=== PATIENT | female | born 1980 ===

== ENCOUNTER 2023-09-01 09:41 | Outpatient (AMB) | payer OTHER, SELFPAY ==
--- NOTE | 2023-09-01 09:44 | AM.OFFWIN_ITS ---
Intake Vital Signs 09/01/23 09:45 Height 5 ft 9 in Weight 231 lb 8 oz BMI 34.2 BP 114/76 Blood Pressure Location Rt brachial Position Sitting Respiration 13 Pulse 82 Pulse Source Pulse Oximeter Temp 97.2 F Temp Source Temporal Artery Scan Pulse Oximetry (%) 95 Oxygen Delivery Method Room Air Intake Visit Reasons: Congestion,head/body ache Intake Note: Patient states that her partner tested positive for RSV last week and her symptoms have gotten worse. 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 Accompanied by: Self / Same As Patient Allergies house dust Allergy (Intermediate, Verified 09/01/23 10:03) Sneezing Seasonal Allergies Allergy (Intermediate, Verified 09/01/23 10:03) Sneezing Medication List - Last Reconciled 09/01/23 by Triston Robles CNP bupropion HCl 300 mg PO QAM fluoxetine 20 mg PO DAILY trazodone 50 mg PO BEDTIME Do you need a note to return to daycare/school/sports/work: No HPI HPI Comments History of Present Illness Details 43-year-old female presents with complai nts of headache, bilat ear pain, sore throat, nasal congestion, intermittent nonproductive cough, and body aches. She notes that her symptoms have been ongoing for past 6 days. She reports associated fatigue. She initially had fever and chills but not at this time. She has not had respiratory viral testing. She notes that her partner tested positive for RSV approximately 2 weeks ago and still recovering. [facility] Social History Patient Tobacco Use Status: Never used Tobacco Review of Systems Const Details: Const Denies chills, Reports fatigue, Denies fever(s), Reports headache(s) and Denies weakness ENT Reports as per HPI Resp Reports cough, Denies dyspnea, Denies wheezing and Denies other (shortness of breath) Cardio Denies chest pain, Denies lightheadedness, Denies dyspnea and Denies other (palpitations) Neuro Denies dizziness, Denies headache(s), Denies numbness, Denies tingling and Denies weakness Psych Denies anxiety, Denies depression, Denies memory?loss Endo REports fatigue Aller/Immun Denies wheezing Physical Exam Vital Signs: Last Vital Signs Temp 97.2 F 09/01/23 09:45 Pulse 82 09/01/23 09:45 Resp 13 09/01/23 09:45 BP 114/76 09/01/23 09:45 Pulse Ox 95 09/01/23 09:45 Oxygen Delivery Method Room Air 09/01/23 09:45 BMI result Body Mass Index 34.2 Const Other: Const General: well developed; No acute distress Nutritional Appearance: well nourished Orientation/consciousness: patient oriented x3 HEENT Head is normocephalic Bilateral ear canal and TM are normal Nasal turbinates and oropharynx are pink and moist Sinuses are nontender with palpation No auricular or cervical lymphadenopathy Eyes General: appearance normal, both eyes and all related structures Pupils: Equal, round and reactive pupils present EOM: EOMs intact bilaterally Resp Effort & Inspection: normal respiratory effort Auscultation: clear to auscultation bilaterally Cardio Rate: regular rate Rhythm: regular rhythm Heart sounds: S1 normal heart sound present, S2 normal heart sound present, no gallops, no murmurs and no rubs Bruits: no abdominal aortic bruits and no carotid bruits Neuro General: patient oriented x3 and gait normal, no focal neuro deficit Cranial nerves: Yes Equal, round and reactive pupils present Psych Affect: normal affect Assessment & Plan Assessment & Plan (1) Viral upper respiratory illness: Code(s): J06.9 - Acute upper respiratory infection, unspecified Plan: Likely viral illness though possibly allergies. No exam evidence of bacterial infection Viral illness There is no antibiotic medication for viruses.? They must run their course.? Most average 5-7 days but 7-10 days is not uncommon and up to 14 days is still possible.? A cough is often the last symptom to resolve and this can last for weeks in some cases. Rest Hydrate well -? Drink plenty of fluids.? Especially water. Tylenol or ibuprofen for muscle aches, headache, fever/discomfort Cannot rule out COVID-19/RSV/Flu infection Nasal swab acquired and will be sent to the lab Return for new or worsening symptoms Verbalized understanding and agreed with treatment plan. Orders: Orders SARS-CoV2/FLU/RSV Today J06.9 - Acute upper respiratory infection, unspecified Coding Level of Care Code New Pt Level 3 (96986) Diagnoses Viral upper respiratory illness J06.9
[2023-09-01 09:45] VITALS: BP 114/76; PULSE 82; RESP 13; TEMP 36.2; O2SAT 95; BMI 34.2
== END 2023-09-01 10:30 | disposition home or self-care (01) ==
PROVIDERS: Visit Provider Nurse Practitioner Family
DX: J06.9 Acute upper respiratory infection, unspecified (principal)
CPT/HCPCS: 99203

== ENCOUNTER 2023-09-01 10:17 | Outpatient (REF) | payer OTHER, SELFPAY ==
[2023-09-01 15:29] LABS: Influenza A PCR NEGATIVE (Negative); Influenza B PCR NEGATIVE (Negative); Resp Syncy Virus RNA Qual PCR POSITIVE (Negative); SARS COV2 PCR INHOUSE NEGATIVE (Negative)
== END 2023-09-01 10:18 | disposition home or self-care (01) ==
LOC: HO.LAB 10:17
PROVIDERS: Visit Provider Nurse Practitioner Family
DX: Z11.52 Encounter for screening for COVID-19 (principal); Z20.822 Contact with and (suspected) exposure to COVID-19; J06.9 Acute upper respiratory infection, unspecified
CPT/HCPCS: 0241U

== ENCOUNTER 2024-02-08 17:52 | Inpatient (IN) | payer OTHER, SELFPAY ==
--- NOTE | ~2024-02-08 | US_ITS ---
EXAMINATION: US PELVIS CLINICAL INFORMATION: Severe pelvic pain COMPARISON: None available. TECHNIQUE: Ultrasound of the pelvis is performed using both transabdominal and transvaginal transducers along with Doppler. Transvaginal imaging is performed due to inadequate visualization transabdominally. FINDINGS: Uterus: The uterus is anteverted, anteflexed and measures 8.0 x 3.9 x 4.7 cm. The double wall endometrial thickness is 0.3 cm. There is an IUD in correct position. The uterus is smooth in contour and has normal myometrial echogenicity. No visible fibroid. Adnexa: Both ovaries are visualized. There is normal color flow to the adnexa. There is no ovarian torsion. There is no pelvic ascites or fluid collection. Right ovary measures 2.7 x 1.6 x 1.7 cm. There is anechoic cyst measuring 1.6 x 1.5 x 1.4 cm. Left ovary measures 1.9 x 1.1 x 1.3 cm. Volume 1.4 mL. There is small amount of free fluid in the cul-de-sac. US/US pelvic and transvaginal IMPRESSION: 1. IUD in correct position. 2. Right ovarian cyst. 3. The left ovary is unremarkable. 4. Small amount of free fluid in the cul-de-sac.
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
[2024-02-08 18:42] VITALS: BP 128/81; PULSE 96; RESP 22; TEMP 36.9; O2SAT 98; BMI 31.7
[2024-02-08 18:49] VITALS: BP 128/81; PULSE 96; RESP 22; TEMP 36.9; O2SAT 98
[2024-02-08 19:05] LABS: UPreg QC Valid YES; Urine Pregnancy NEGATIVE (NEGATIVE)
[2024-02-08 19:14] LABS: Amphetamine Screen Urine Not Detected (Not Detect); Barbiturates, Urine Not Detected (Not Detect); Benzodiazepines Screen Urine Not Detected (Not Detect); Buprenorphine Scr Not Detected (Not Detect); Cannabinoid Screen Urine POSITIVE (Not Detect); Cocaine Screen Urine Not Detected (Not Detect); Fentanyl, urine Not Detected (Not Detect); Methadone Screen, Urine Not Detected (Not Detect); Opiate Screen Urine Not Detected (Not Detect); Oxycodone Screen Urine Not Detected (Not Detect); Phencyclidine Screen Urine Not Detected (Not Detect)
[2024-02-08 19:16] LABS: MANUAL DIFF FLAG NO
[2024-02-08 19:17] LABS: Basophils Percent Auto 0.4 % (0-2); Eosinophils Absolute Auto 0.1 X10*3/uL (0.0-0.4); Eosinophils Percent Auto 0.7 % (0-4); Hematocrit 40.1 % (37.0-47.0); Hemoglobin 13.7 g/dl (12.0-16.0); Imm Gran Abs Auto 0.01 X10*3/uL (0.00-0.03); Imm Gran Pct Auto 0.1 % (0.0-0.4); Lymphocytes Absolute Auto 1.7 X10*3/uL (1.2-4.9); Lymphocytes Percent Auto 18.7 % (20-40); Mean Corpuscular HGB Conc 34.2 g/dl (31.0-35.0); Mean Corpuscular Hemoglobin 31.8 pg (27.0-33.0); Mean Platelet Volume 8.9 fL (9.4-12.3); Monocytes Absolute Auto 0.7 X10*3/uL (0.1-1.2); Monocytes Percent Auto 7.6 % (2-11); Neutrophils Absolute Auto 6.7 x10*3/uL (2.0-8.3); Neutrophils Percent Auto 72.5 % (45-73); Platelet Count 258 X10*3/uL (160-400); Red Blood Count 4.31 X10*6/uL (4.20-5.50); Red Cell Distribution Width 12.6 % (11.0-16.0); White Blood Count 9.2 X10*3/uL (4.8-10.8)
[2024-02-08 19:32] LABS: Acetaminophen LAB < 3 mcg/mL (<30); Salicylate < 5.0 mg/dL (15-30)
[2024-02-08 19:34] LABS: Alanine Aminotransferase 12 U/L (0-31); Albumin Level 4.2 g/dL (3.5-5.0); Alkaline Phosphatase 77 U/L (39-117); Anion Gap 14 (12-20); Aspartate Amino Transferase 17 U/L (5-31); Bilirubin Direct 0.2 mg/dL (0.0-0.5); Bilirubin Total 0.4 mg/dL (0.0-1.0); Blood Urea Nitrogen 11 mg/dL (9-16); Calcium 9.1 mg/dL (8.4-10.2); Carbon Dioxide 25 mmol/L (22-29); Chloride 104 mmol/L (96-108); Creatinine Clr Calc Pharmacy 82.1; Estimated Glomerular Filt Rate 54; Ethanol < 10 mg/dL; Glucose Random 90 mg/dL (60-115); Potassium 3.6 mmol/L (3.3-5.1); Sodium 139 mmol/L (135-145); Total Protein 6.9 g/dL (6.5-8.0)
[2024-02-08 20:02] LABS: Appearance Urine Clear; Color Urine Yellow; Glucose Urine UA Negative (Negative); Leukocyte Esterase Urine Trace (Negative); Nitrite Urine Negative (Negative); PH 5.5 (5.0-9.0); Specific Gravity - Urine 1.025 (1.005-1.025); UMIC TRIGGER UA YES; Urine Blood Moderate (2+) (Negative); Urine Ketones 40 mg/dL (Negative); Urine Protein Trace mg/dL (Neg-Trace)
[2024-02-08 20:14] LABS: Bacteria Urine 4+ (None Seen); Hyaline Casts Urine 0-2 /LPF (0-2)
--- NOTE | 2024-02-09 04:45 | PC.NURSE ---
Patient slept through the night, no distress observed/reported, med rec completed/pending provider's approval, disposition per care team is section 12 inpatient bed search, no behavior and safety issues, safety check maintained on 15 minutes, VSS, will continue to monitor
[2024-02-09 06:27] VITALS: BP 137/78; PULSE 84; TEMP 36.4; O2SAT 99
--- NOTE | 2024-02-09 06:49 | PC.NURSE ---
Assumed care of patient at 0645, patient appears to be in no apparent distress, sleeping, respirations even and unlabored. Continue plan of care for inpatient bedsearch
[2024-02-09] MEDS: FLUoxetine HCl 20 MG CAPSULE PO (08:00)
[2024-02-09] MEDS: buPROPion HCl XL 300 MG TAB.ER.24H PO (08:00)
[2024-02-09] MEDS: Ibuprofen 800 MG TABLET PO (12:02)
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
[2024-02-09 13:52] VITALS: BMI 32.6
[2024-02-09] MEDS: Acetaminophen 325 MG TABLET 650 MG PO (15:35)
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
[2024-02-09] MEDS: LORazepam 2 MG/ML VIAL 1 MG IM (18:49)
[2024-02-09 20:15] VITALS: PULSE 79; RESP 16; TEMP 36.9; O2SAT 96
[2024-02-09] MEDS: hydrOXYzine HCL 25 MG TABLET PO (20:20)
[2024-02-09] MEDS: traZODone HCL 50 MG TABLET PO (20:20)
[2024-02-09] MEDS: QUEtiapine Fumarate 25 MG TABLET PO (20:20)
[2024-02-09 20:21] VITALS: BP 135/71
[2024-02-09] MEDS: Prazosin HCL 1 MG CAPSULE PO (20:21)
[2024-02-10 08:00] VITALS: BP 136/68; PULSE 76; RESP 18; TEMP 36.6; O2SAT 96
[2024-02-10] MEDS: buPROPion HCl XL 300 MG TAB.ER.24H PO (08:47)
[2024-02-10] MEDS: FLUoxetine HCl 20 MG CAPSULE PO (08:47)
[2024-02-10 08:48] LABS: Syphilis Screen Nonreactive (Nonreactive)
[2024-02-10] MEDS: Lidocaine 4 % Patch ADH..PATCH 1 PATCH TRANSDERMA (08:49)
--- NOTE | 2024-02-10 08:50 | HO.PSYCHPN ---
Subjective Subjective Date of Service: 02/10/24 Reason For Visit: crisis Subjective Notes: Conditional Voluntary Interim History: Reviewed with Dr. Mccormack. Keeping to self. Pt reports feeling exhausted today; pt stated, I feel like my anxiety has improved. I didn't have nightmares last night and slept well . Pt denies SI/HI/VH/AH. Pt seen by hospitalist for pelvic pain, please see note. Medication Compliance: Yes Side effects from medications: No Attending Groups: No Review of Systems Constitutional: Reports as per HPI Eyes: Reports as per HPI Reports as per HPI Cardiovascular: Reports as per HPI Respiratory: Reports as per HPI Gastrointestinal: Reports as per HPI Musculoskeletal: Reports as per HPI Skin/Breast: Reports as per HPI Reports as per HPI Psychiatric: Reports as per HPI Endocrine: Reports as per HPI Hematologic/Lymphatic: Reports as per HPI Allergic/Immunologic: Reports as per HPI Mental Status Exam Mental Status Exam Narrative: Pt is alert and oriented; behavior is cooperative and calm; dressed in casual attire; mood is described as depressed and anxious ; eye contact appropriate; Speech is normal rate, volume and not pressured; thought process is organized and goal directed; Thought content is on tx; otherwise pertinent to relevant topics and without any delusional content, paranoid ideations or grandiosity; denies SI/HI/VH/AH. Diagnostics Vital Signs (24Hr): Vital Signs - 24 hr 02/09/24 20:15 02/09/24 20:21 02/10/24 08:00 Temperature 98.4 F 97.8 F Pulse Rate 79 76 Respiratory Rate 16 18 Blood Pressure 135/71 136/68 Pulse Oximetry 96 96 Oxygen Delivery Method Room Air Room Air BMI result Body Mass Index 32.6 Labs 02/08/24 19:11 02/10/24 08:28 Labs: Laboratory Results - last 48 hr 02/08/24 02/08/24 02/09/24 18:47 19:11 18:03 WBC 9.2 RBC 4.31 Hgb 13.7 Hct 40.1 MCV 93.0 MCH 31.8 MCHC 34.2 RDW 12.6 Plt Count 258 MPV 8.9 L Immature Gran % (Auto) 0.1 Neut % (Auto) 72.5 Lymph % (Auto) 18.7 L [place] % (Auto) 7.6 Eos % (Auto) 0.7 Baso % (Auto) 0.4 Lymph # (Auto) 1.7 [place] # (Auto) 0.7 Eos # (Auto) 0.1 Baso # (Auto) 0.0 Abs Immat Gran (auto) 0.01 Absolute Neuts (auto) 6.7 Absolute Nucleated RBC 0.000 Nucleated RBC % (auto) 0.0 Sodium 139 Potassium 3.6 Chloride 104 Carbon Dioxide 25 Anion Gap 14 BUN 11 Creatinine 1.12 Estim Creat Clear Calc 82.1 Estimated GFR 54 Random Glucose 90 Calcium 9.1 Total Bilirubin 0.4 Direct Bilirubin 0.2 AST 17 ALT 12 Alkaline Phosphatase 77 Total Creatine Kinase 186 H Total Protein 6.9 Albumin 4.2 Urine Color Yellow Urine Appearance Clear Urine pH 5.5 Ur Specific [place] 1.025 Urine Protein Trace Urine Glucose (UA) Negative Urine Ketones 40 Urine Blood Moderate (2+) H Urine Nitrite Negative Ur Leukocyte Esterase Trace H Urine RBC 6-10 H Urine WBC 6-10 Ur Squamous Epith Cells 11-20 Urine Bacteria 4+ Hyaline Casts 0-2 Urine Test NEGATIVE Salicylates < 5.0 L Urine Opiates Screen Not Detected Ur Buprenorphine Scrn Not Detected Ur Oxycodone Screen Not Detected Urine Methadone Screen Not Detected Urine Fentanyl Screen Not Detected Acetaminophen < 3 Ur Barbiturates Screen Not Detected Ur Phencyclidine Scrn Not Detected Ur Amphetamines Screen Not Detected U Benzodiazepines Scrn Not Detected Urine Cocaine Screen Not Detected U Marijuana (THC) Screen POSITIVE H Ethyl Alcohol < 10 T.pallidum Ab (EIA) Nonreactive Imaging Radiology Impressions: ITS Impressions Pelvic/Transvag US 02/09/24 19:22 IMPRESSION: 1. IUD in correct position. 2. Right ovarian cyst. 3. The left ovary is unremarkable. 4. Small amount of free fluid in the cul-de-sac. Medications Medications Current Medications Acetaminophen (Acetaminophen 325 Mg Tablet) 650 mg PO Q6H PRN PRN Reason: Headache/Pain Mild Scale (1-3) Last Admin: 02/09/24 15:35 Dose: 650 mg Al Hydroxide/Mg Hydroxide (Magnesium Hydrox/Alum Hydrox 30 Ml Oral.Susp) 30 ml PO Q6H PRN PRN Reason: Heartburn/Nausea Bupropion HCl (Bupropion Hcl Xl 300 Mg Tab.Er.24h) 300 mg PO DAILY [facility] Last Admin: 02/09/24 08:00 Dose: 300 mg Fluoxetine HCl (Fluoxetine Hcl 20 Mg Capsule) 20 mg PO DAILY [facility] Last Admin: 02/09/24 08:00 Dose: 20 mg Hydroxyzine HCl (Hydroxyzine Hcl 25 Mg Tablet) 25 mg PO Q6H PRN PRN Reason: Anxiety Last Admin: 02/09/24 20:20 Dose: 25 mg Ibuprofen (Ibuprofen 600 Mg Tablet) 600 mg PO Q6H PRN PRN Reason: Pain, Moderate(Pain Scale 4-6) Ketorolac Tromethamine (Ketorolac Tromethamine 15 Mg/Ml Vial) 15 mg IM Q6H PRN PRN Reason: pelvic pain Lidocaine (Lidocaine 4 % Patch Adh..Patch) 1 patch TRANSDERMA DAILY [facility]; Protocol Magnesium Hydroxide (Milk Of Magnesia 30 Ml Oral.Susp) 30 ml PO DAILY PRN PRN Reason: Constipation Nicotine (Nicotine 21 Mg Patch.Td24) 21 mg TRANSDERMA DAILY [facility] Nicotine Polacrilex (Nicotine Polacrilex 2 Mg Gum) 4 mg BUCCAL Q2H PRN PRN Reason: Nicotine Cravings Prazosin HCl (Prazosin Hcl 1 Mg Capsule) 1 mg PO BEDTIME [facility]; Protocol Last Admin: 02/09/24 20:21 Dose: 1 mg Quetiapine Fumarate (Quetiapine Fumarate 25 Mg Tablet) 25 mg PO BID PRN PRN Reason: Anxiety Last Admin: 02/09/24 20:20 Dose: 25 mg Testosterone Cypionate (Testosterone Cypionate 200 Mg/1 Ml Vial) 100 mg SUBCUT Sa [facility] Trazodone HCl (Trazodone Hcl 50 Mg Tablet) 50 mg PO BEDTIME [facility] Last Admin: 02/09/24 20:20 Dose: 50 mg Allergies Allergies Allergy/AdvReac Type Severity Reaction Status Date / Time house dust Allergy Intermediate Sneezing Verified 02/08/24 18:47 Seasonal Allergies Allergy Intermediate Sneezing Verified 02/08/24 18:47 Assessment & Plan Assessment & Plan (1) MDD (major depressive disorder), recurrent episode: Status: Acute Code(s): F33.9 - Major depressive disorder, recurrent, unspecified (2) PTSD (post-traumatic stress disorder): Status: Acute Code(s): F43.10 - Post-traumatic stress disorder, unspecified (3) Pelvic pain: Status: Acute Code(s): R10.2 - Pelvic and perineal pain Assessment and Plan: 43 year old transgender male on testosterone therapy with history of endometriosis with history of multiple exploratory lap surgeries, hx ovarian cysts admitted to adult psychiatry with consult placed to hospitalist service for evaluation of severe left sided pelvic pain that started about 1 week ago. #Severe pelvic pain- etiology unclear at this time. Has been intermittent x several month. However, give recent IUD insertion, would recommend: -gonorrhea and chlamydia pcr. WOuld like full STD testing- syphilis and HIV testing ordered at patient request -BV panel (BV, yeast, trich) -UA with trace leukocytes, 2+ blood, 4+ bacteria. Hold on abx for now until further testing results as patient not symptomatic of UTI at this time -Transvaginal/pelvis US ordered. Administer 1mg ativan prior to test -IM ketorolac prn for pelvic pain. Continue dry heat Will continue following for results Plan Patient is a 43-year-old transgender female to male who goes by Flo, who self presented to [facility] due increase PTSD symptoms which included flashbacks secondary to finding out one of his friends is a registered sex offender. Plan: CV 15 minute safety checks Continue home medications Start: Prazosin 1mg PO bedtime Seroquel 25mg PO BID PRN encourage groups referral to outpatient therapist possible PHP referral? discharge planning 02/09: Keeping to self. Pt reports feeling exhausted today; pt stated, I feel like my anxiety has improved. I didn't have nightmares last night and slept well . Pt denies SI/HI/VH/AH. Pt seen by hospitalist for pelvic pain, please see note. Continue to encourage groups. Continue current tx plan. Patient educated on: diagnosis, medication risk/benefits and therapeutic strategies Reason for continued inpatient stay Substantial Risk for: med/psych decompensation Time Spent With Patient Time: Total time managing care of this patient today _20___ minutes.
[2024-02-10 08:52] LABS: Alanine Aminotransferase 11 U/L (0-31); Albumin Level 4.2 g/dL (3.5-5.0); Alkaline Phosphatase 76 U/L (39-117); Anion Gap 14 (12-20); Aspartate Amino Transferase 15 U/L (5-31); Bilirubin Total 0.5 mg/dL (0.0-1.0); Blood Urea Nitrogen 9 mg/dL (9-16); Calcium 9.6 mg/dL (8.4-10.2); Carbon Dioxide 29 mmol/L (22-29); Chloride 104 mmol/L (96-108); Cholesterol 150 mg/dL (<200); Creatinine Clr Calc Pharmacy 89.7; Estimated Glomerular Filt Rate 58; Glucose Fasting 90 mg/dL (60-99); HDL Cholesterol 48 mg/dL (>40); LDL Cholesterol Calculated 84 mg/dL (<100); Potassium 4.4 mmol/L (3.3-5.1); Sodium 143 mmol/L (135-145); Total Protein 7.1 g/dL (6.5-8.0); Triglycerides 94 mg/dL (<150)
[2024-02-10 08:54] LABS: HIV Num 1 1.08 S/CO (0.00-0.99)
[2024-02-10] MEDS: Ketorolac Tromethamine 15 MG/ML VIAL IM ×2 (11:43→20:33)
[2024-02-10 12:11] LABS: Bacterial Vaginosis PCR NEGATIVE (Negative); Candida Group PCR NOT DETECTED (Not Detect); Candida glab krusei PCR NOT DETECTED (Not Detect); Trichomonas vaginalis PCR NOT DETECTED (Not Detect)
[2024-02-10 12:58] LABS: HIV Num 2 0.05 S/CO
[2024-02-10 13:05] LABS: HIV AB/AG Nonreactive (Nonreactive); HIV Num 3 0.04 S/CO
[2024-02-10 20:30] VITALS: PULSE 85; RESP 16; TEMP 36.9; O2SAT 100
[2024-02-10 20:34] VITALS: BP 122/60
[2024-02-10] MEDS: Prazosin HCL 1 MG CAPSULE PO (20:34)
[2024-02-10] MEDS: hydrOXYzine HCL 25 MG TABLET PO (20:34)
[2024-02-10] MEDS: QUEtiapine Fumarate 25 MG TABLET PO (20:35)
[2024-02-10] MEDS: traZODone HCL 50 MG TABLET PO (20:35)
[2024-02-11] MEDS: Ketorolac Tromethamine 15 MG/ML VIAL IM ×2 (00:55→06:47)
[2024-02-11 03:18] LABS: CT PCR NOT DETECTED (Not Detect.); NG PCR NOT DETECTED (Not Detect.)
--- NOTE | 2024-02-11 06:51 | PC.NURSE ---
toradol IM-2 vial from patient specific bin, last dose pulled from [facility]. initial pain level 01/30, last administration 09/30.
[2024-02-11 07:53] VITALS: BP 135/69; PULSE 83; RESP 16; TEMP 36.7; O2SAT 98
--- NOTE | 2024-02-11 08:53 | HO.PSYCHPN ---
Subjective Subjective Date of Service: 02/11/24 Reason For Visit: crisis Subjective Notes: Conditional Voluntary Interim History: Reviewed with Dr. Mccormack. Keeping to self. Pt reports feeling anxious and depressed today; pt stated, I feel like every time in my life when I start feel better, something happens and it sets me back . Patient reports she is not feeling as anxious or jumpy . She is declining to attend groups at this time due to the unit being too noisy . Patient reports she is not interested in attending PHP, nor wants us to refer her to a therapist. She plans on contacting a trauma informed therapist on her own when discharged. Pt denies SI/HI/VH/AH. Medication Compliance: Yes Side effects from medications: No Attending Groups: No Review of Systems Constitutional: Reports as per HPI Eyes: Reports as per HPI Reports as per HPI Cardiovascular: Reports as per HPI Respiratory: Reports as per HPI Gastrointestinal: Reports as per HPI Musculoskeletal: Reports as per HPI Skin/Breast: Reports as per HPI Reports as per HPI Psychiatric: Reports as per HPI Endocrine: Reports as per HPI Hematologic/Lymphatic: Reports as per HPI Allergic/Immunologic: Reports as per HPI Mental Status Exam Mental Status Exam Narrative: Pt is alert and oriented; behavior is cooperative and calm; dressed in casual attire; mood is described as depressed and anxious ; eye contact appropriate; Speech is normal rate, volume and not pressured; thought process is organized and goal directed; Thought content is on tx; otherwise pertinent to relevant topics and without any delusional content, paranoid ideations or grandiosity; denies SI/HI/VH/AH. Diagnostics Vital Signs (24Hr): Vital Signs - 24 hr 02/10/24 20:30 02/10/24 20:34 02/11/24 07:53 Temperature 98.5 F 98.1 F Pulse Rate 85 83 Respiratory Rate 16 16 Blood Pressure 122/60 135/69 Pulse Oximetry 100 98 Oxygen Delivery Method Room Air Room Air BMI result Body Mass Index 32.6 Labs 02/08/24 19:11 02/10/24 08:28 Labs: Laboratory Results - last 48 hr 02/09/24 02/10/24 02/10/24 18:03 06:30 08:28 Sodium 143 Potassium 4.4 D Chloride 104 Carbon Dioxide 29 Anion Gap 14 BUN 9 Creatinine 1.04 Estim Creat Clear Calc 89.7 Estimated GFR 58 Fasting Glucose 90 Calcium 9.6 Total Bilirubin 0.5 AST 15 ALT 11 Alkaline Phosphatase 76 Total Protein 7.1 Albumin 4.2 Triglycerides 94 Cholesterol 150 LDL Cholesterol, Calc 84 HDL Cholesterol 48 T.pallidum Ab (EIA) Nonreactive Chlam trachomat DNA PCR HIV 1&2 Ab/P24 Ag 4thGn Nonreactive N.gonorrhoeae DNA (PCR) T. vaginalis (PCR) NOT DETECTED Bact Vaginosis (PCR) NEGATIVE C. krusei/glabrata (PCR) NOT DETECTED Janelle group (PCR) NOT DETECTED 02/10/24 20:00 Sodium Potassium Chloride Carbon Dioxide Anion Gap BUN Creatinine Estim Creat Clear Calc Estimated GFR Fasting Glucose Calcium Total Bilirubin AST ALT Alkaline Phosphatase Total Protein Albumin Triglycerides Cholesterol LDL Cholesterol, Calc HDL Cholesterol T.pallidum Ab (EIA) Chlam trachomat DNA PCR NOT DETECTED HIV 1&2 Ab/P24 Ag 4thGn N.gonorrhoeae DNA (PCR) NOT DETECTED T. vaginalis (PCR) Bact Vaginosis (PCR) C. krusei/glabrata (PCR) Janelle group (PCR) Imaging Radiology Impressions: ITS Impressions Pelvic/Transvag US 02/09/24 19:22 IMPRESSION: 1. IUD in correct position. 2. Right ovarian cyst. 3. The left ovary is unremarkable. 4. Small amount of free fluid in the cul-de-sac. Medications Medications Current Medications Acetaminophen (Acetaminophen 325 Mg Tablet) 650 mg PO Q6H PRN PRN Reason: Headache/Pain Mild Scale (1-3) Last Admin: 02/09/24 15:35 Dose: 650 mg Al Hydroxide/Mg Hydroxide (Magnesium Hydrox/Alum Hydrox 30 Ml Oral.Susp) 30 ml PO Q6H PRN PRN Reason: Heartburn/Nausea Bupropion HCl (Bupropion Hcl Xl 300 Mg Tab.Er.24h) 300 mg PO DAILY [facility] Last Admin: 02/10/24 08:47 Dose: 300 mg Fluoxetine HCl (Fluoxetine Hcl 20 Mg Capsule) 20 mg PO DAILY [facility] Last Admin: 02/10/24 08:47 Dose: 20 mg Hydroxyzine HCl (Hydroxyzine Hcl 25 Mg Tablet) 25 mg PO Q6H PRN PRN Reason: Anxiety Last Admin: 02/10/24 20:34 Dose: 25 mg Ibuprofen (Ibuprofen 600 Mg Tablet) 600 mg PO Q6H PRN PRN Reason: Pain, Moderate(Pain Scale 4-6) Lidocaine (Lidocaine 4 % Patch Adh..Patch) 1 patch TRANSDERMA DAILY [facility]; Protocol Last Admin: 02/10/24 08:49 Dose: 1 patch Magnesium Hydroxide (Milk Of Magnesia 30 Ml Oral.Susp) 30 ml PO DAILY PRN PRN Reason: Constipation Nicotine Polacrilex (Nicotine Polacrilex 2 Mg Gum) 4 mg BUCCAL Q2H PRN PRN Reason: Nicotine Cravings Prazosin HCl (Prazosin Hcl 1 Mg Capsule) 1 mg PO BEDTIME [facility]; Protocol Last Admin: 02/10/24 20:34 Dose: 1 mg Quetiapine Fumarate (Quetiapine Fumarate 25 Mg Tablet) 25 mg PO BID PRN PRN Reason: Anxiety Last Admin: 02/10/24 20:35 Dose: 25 mg Testosterone Cypionate (Testosterone Cypionate 200 Mg/1 Ml Vial) 100 mg SUBCUT Sa [facility] Trazodone HCl (Trazodone Hcl 50 Mg Tablet) 50 mg PO BEDTIME [facility] Last Admin: 02/10/24 20:35 Dose: 50 mg Allergies Allergies Allergy/AdvReac Type Severity Reaction Status Date / Time house dust Allergy Intermediate Sneezing Verified 02/08/24 18:47 Seasonal Allergies Allergy Intermediate Sneezing Verified 02/08/24 18:47 Assessment & Plan Assessment & Plan (1) MDD (major depressive disorder), recurrent episode: Status: Acute Code(s): F33.9 - Major depressive disorder, recurrent, unspecified (2) PTSD (post-traumatic stress disorder): Status: Acute Code(s): F43.10 - Post-traumatic stress disorder, unspecified Plan Patient is a 43-year-old transgender female to male who goes by Flo, who self [place] [facility] [place] increase PTSD symptoms which included flashbacks secondary to finding out one of his friends is a registered sex offender. Plan: CV 15 minute safety checks Continue home medications Start: Prazosin 1mg PO bedtime Seroquel 25mg PO BID PRN encourage groups referral to outpatient therapist possible PHP referral? discharge planning 02/09: Keeping to self. Pt reports feeling exhausted today; pt stated, I feel like my anxiety has improved. I didn't have nightmares last night and slept well . Pt denies SI/HI/VH/AH. Pt seen by hospitalist for pelvic pain, please see note. Continue to encourage groups. Continue current tx plan. 02/10: Keeping to self. Pt reports feeling anxious and depressed today; pt stated, I feel like every time in my life when I start feel better, something happens and it sets me back . Patient reports she is not feeling as anxious or jumpy . She is declining to attend groups at this time due to the unit being too noisy . Patient reports she is not interested in attending PHP, nor wants us to refer her to a therapist. She plans on contacting a trauma informed therapist on her own when discharged. Pt denies SI/HI/VH/AH. Patient educated on: diagnosis, medication risk/benefits and therapeutic strategies Informed Consent: understands Reason for continued inpatient stay Substantial Risk for: med/psych decompensation Time Spent With Patient Time: Total time managing care of this patient today _20___ minutes.
[2024-02-11] MEDS: FLUoxetine HCl 20 MG CAPSULE PO (08:55)
[2024-02-11] MEDS: buPROPion HCl XL 300 MG TAB.ER.24H PO (08:55)
[2024-02-11] MEDS: QUEtiapine Fumarate 25 MG TABLET PO ×2 (09:08→21:42)
[2024-02-11 20:00] VITALS: BP 133/73; PULSE 84; RESP 14; TEMP 36.3; O2SAT 97
[2024-02-11] MEDS: Prazosin HCL 1 MG CAPSULE PO (20:34)
[2024-02-11] MEDS: traZODone HCL 50 MG TABLET PO (20:34)
[2024-02-11] MEDS: hydrOXYzine HCL 25 MG TABLET PO (20:34)
[2024-02-12 09:14] VITALS: BP 129/59; PULSE 86; RESP 16; TEMP 36.4; O2SAT 98
[2024-02-12] MEDS: FLUoxetine HCl 20 MG CAPSULE PO (09:16)
[2024-02-12] MEDS: buPROPion HCl XL 300 MG TAB.ER.24H PO (09:16)
[2024-02-12] MEDS: Ibuprofen 600 MG TABLET PO (09:57)
[2024-02-12] MEDS: QUEtiapine Fumarate 25 MG TABLET PO ×2 (09:57→22:03)
--- NOTE | 2024-02-12 12:47 | P.PNPSI_ITS ---
Subjective Subjective Date of Service: 02/12/24 Reason For Visit: crisis Subjective Notes: Conditional Voluntary Interim History: Reviewed with Dr. Mccormack. Pt reports feeling better but continues to report feeling anxious today; pt stated, I feel like I would do better at home. It's too triggering being here because it's too loud and some of the conversations people have . Pt reports she would like to be discharged home tomorrow and plans on following up with his outpatient providers. pt denies SI/HI/VH/AH. Medication Compliance: Yes Side effects from medications: No Attending Groups: No Review of Systems Constitutional: Reports as per HPI Eyes: Reports as per HPI Reports as per HPI Cardiovascular: Reports as per HPI Respiratory: Reports as per HPI Gastrointestinal: Reports as per HPI Musculoskeletal: Reports as per HPI Skin/Breast: Reports as per HPI Reports as per HPI Psychiatric: Reports as per HPI Endocrine: Reports as per HPI Hematologic/Lymphatic: Reports as per HPI Allergic/Immunologic: Reports as per HPI Mental Status Exam Mental Status Exam Narrative: Pt is alert and oriented; behavior is cooperative and calm; dressed in casual attire; mood is described as better but anxious ; eye contact appropriate; Speech is normal rate, volume and not pressured; thought process is organized and goal directed; Thought content is on discharge; otherwise pertinent to relevant topics and without any delusional content, paranoid ideations or grandiosity; denies SI/HI/VH/AH. Diagnostics Vital Signs (24Hr): Vital Signs - 24 hr 02/11/24 20:00 02/12/24 09:14 Temperature 97.3 F 97.5 F Pulse Rate 84 86 Respiratory Rate 14 16 Blood Pressure 133/73 129/59 L Pulse Oximetry 97 98 Oxygen Delivery Method Room Air Room Air BMI result Body Mass Index 32.6 Labs 02/08/24 19:11 02/10/24 08:28 Labs: Laboratory Results - last 48 hr 02/09/24 02/10/24 18:03 20:00 Chlam trachomat DNA PCR NOT DETECTED HIV 1&2 Ab/P24 Ag 4thGn Nonreactive N.gonorrhoeae DNA (PCR) NOT DETECTED Imaging Radiology Impressions: ITS Impressions Pelvic/Transvag US 02/09/24 19:22 IMPRESSION: 1. IUD in correct position. 2. Right ovarian cyst. 3. The left ovary is unremarkable. 4. Small amount of free fluid in the cul-de-sac. Medications Medications Current Medications Acetaminophen (Acetaminophen 325 Mg Tablet) 650 mg PO Q6H PRN PRN Reason: Headache/Pain Mild Scale (1-3) Last Admin: 02/09/24 15:35 Dose: 650 mg Al Hydroxide/Mg Hydroxide (Magnesium Hydrox/Alum Hydrox 30 Ml Oral.Susp) 30 ml PO Q6H PRN PRN Reason: Heartburn/Nausea Bupropion HCl (Bupropion Hcl Xl 300 Mg Tab.Er.24h) 300 mg PO DAILY [facility] Last Admin: 02/12/24 09:16 Dose: 300 mg Fluoxetine HCl (Fluoxetine Hcl 20 Mg Capsule) 20 mg PO DAILY [facility] Last Admin: 02/12/24 09:16 Dose: 20 mg Hydroxyzine HCl (Hydroxyzine Hcl 25 Mg Tablet) 25 mg PO Q6H PRN PRN Reason: Anxiety Last Admin: 02/11/24 20:34 Dose: 25 mg Ibuprofen (Ibuprofen 600 Mg Tablet) 600 mg PO Q6H PRN PRN Reason: Pain, Moderate(Pain Scale 4-6) Last Admin: 02/12/24 09:57 Dose: 600 mg Lidocaine (Lidocaine 4 % Patch Adh..Patch) 1 patch TRANSDERMA DAILY [facility]; Protocol Last Admin: 02/12/24 09:19 Dose: Not Given Magnesium Hydroxide (Milk Of Magnesia 30 Ml Oral.Susp) 30 ml PO DAILY PRN PRN Reason: Constipation Nicotine Polacrilex (Nicotine Polacrilex 2 Mg Gum) 4 mg BUCCAL Q2H PRN PRN Reason: Nicotine Cravings Prazosin HCl (Prazosin Hcl 1 Mg Capsule) 1 mg PO BEDTIME [facility]; Protocol Last Admin: 02/11/24 20:34 Dose: 1 mg Quetiapine Fumarate (Quetiapine Fumarate 25 Mg Tablet) 25 mg PO BID PRN PRN Reason: Anxiety Last Admin: 02/12/24 09:57 Dose: 25 mg Testosterone Cypionate (Testosterone Cypionate 200 Mg/1 Ml Vial) 100 mg SUBCUT Sa [facility] Trazodone HCl (Trazodone Hcl 50 Mg Tablet) 50 mg PO BEDTIME [facility] Last Admin: 02/11/24 20:34 Dose: 50 mg Allergies Allergies Allergy/AdvReac Type Severity Reaction Status Date / Time house dust Allergy Intermediate Sneezing Verified 02/08/24 18:47 Seasonal Allergies Allergy Intermediate Sneezing Verified 02/08/24 18:47 Assessment & Plan Assessment & Plan (1) MDD (major depressive disorder), recurrent episode: Status: Acute Code(s): F33.9 - Major depressive disorder, recurrent, unspecified (2) PTSD (post-traumatic stress disorder): Status: Acute Code(s): F43.10 - Post-traumatic stress disorder, unspecified Plan Patient is a 43-year-old transgender female to male who goes by Flo, who self presented to [facility] [place] [facility] due increase PTSD symptoms which included flashbacks secondary to finding out one of his friends is a registered sex offender. Plan: CV 15 minute safety checks Continue home medications Start: Prazosin 1mg PO bedtime Seroquel 25mg PO BID PRN encourage groups referral to outpatient therapist possible PHP referral? discharge planning 02/09: Keeping to self. Pt reports feeling exhausted today; pt stated, I feel like my anxiety has improved. I didn't have nightmares last night and slept well . Pt denies SI/HI/VH/AH. Pt seen by hospitalist for pelvic pain, please see note. Continue to encourage groups. Continue current tx plan. 02/10: Keeping to self. Pt reports feeling anxious and depressed today; pt stated, I feel like every time in my life when I start feel better, something happens and it sets me back . Patient reports she is not feeling as anxious or jumpy . She is declining to attend groups at this time due to the unit being too noisy . Patient reports she is not interested in attending PHP, nor wants us to refer her to a therapist. She plans on contacting a trauma informed therapist on her own when discharged. Pt denies SI/HI/VH/AH. 02/11: Pt reports feeling better but continues to report feeling anxious today; pt stated, I feel like I would do better at home. It's too triggering being here because it's too loud and some of the conversations people have . Pt reports she would like to be discharged home tomorrow and plans on following up with his outpatient providers. pt denies SI/HI/VH/AH. Patient educated on: diagnosis, medication risk/benefits and therapeutic strategies Reason for continued inpatient stay Substantial Risk for: stable for discharge Time Spent With Patient Time: Total time managing care of this patient today _20___ minutes.
[2024-02-12 13:55] VITALS: BMI 31.5
[2024-02-12 20:00] VITALS: BP 137/75; PULSE 84; RESP 18; TEMP 36.1; O2SAT 99
[2024-02-12] MEDS: Prazosin HCL 1 MG CAPSULE PO (20:24)
[2024-02-12] MEDS: hydrOXYzine HCL 25 MG TABLET PO (20:24)
[2024-02-12] MEDS: traZODone HCL 50 MG TABLET PO (20:24)
[2024-02-13 07:30] VITALS: BP 112/58; PULSE 87; RESP 14; TEMP 36.8; O2SAT 97
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
[2024-02-13] MEDS: FLUoxetine HCl 20 MG CAPSULE PO (09:10)
[2024-02-13] MEDS: buPROPion HCl XL 300 MG TAB.ER.24H PO (09:10)
== END 2024-02-13 10:25 | disposition home or self-care (01) | DRG 885 ==
LOC: HO.ED 02-09 11:56 → HO.PADLT16 02-09 11:57
PROVIDERS: Physician Assistant; Admitting Provider Registered Nurse; Emergency Provider Emergency Medicine; PCP Nurse Practitioner Family; Responsible Provider Registered Nurse; Visit Provider Psychiatry & Neurology Psychiatry
DX: F33.9 Major depressive disorder, recurrent, unspecified (principal); F64.0 Transsexualism; F43.10 Post-traumatic stress disorder, unspecified; N83.201 Unspecified ovarian cyst, right side; Z79.899 Other long term (current) drug therapy
CPT/HCPCS: 0352U; 36415; 76830; 76856; 80048; 80053; 80061; 80076; 80143; 80179; 80307; 81001; 81003; 81025; 82550; 85025; 86780; 87389; 87491; 87591; 99285; J1885; J2060; S9485

== ENCOUNTER → 2024-02-09 11:42 | Outpatient (BNV) | payer OTHER, SELFPAY | PROVIDERS: Admitting Provider Registered Nurse; Emergency Provider Emergency Medicine; PCP Nurse Practitioner Family; Responsible Provider Registered Nurse; Visit Provider Registered Nurse | DX: F33.2 Major depressive disorder, recurrent severe without psychotic features (principal); F43.11 Post-traumatic stress disorder, acute | CPT/HCPCS: 90792; 99231; 99232; 99238 ==

== ENCOUNTER → 2024-02-09 11:42 | Outpatient (BNV) | payer OTHER, SELFPAY | PROVIDERS: Admitting Provider Registered Nurse; Emergency Provider Emergency Medicine; PCP Nurse Practitioner Family; Responsible Provider Registered Nurse; Visit Provider Physician Assistant | DX: R10.2 Pelvic and perineal pain (principal) | CPT/HCPCS: 99429 ==